=== PATIENT | male | born 1930 | race African-American/Black ===

== ENCOUNTER 2020-03-23 12:07 | Inpatient (IN) ==
[2020-03-23] MEDS ORDERED: SODIUM BICARBONATE 50 MEQ/50 ML VIAL IV ONE (16:13)
[2020-03-23] MEDS ORDERED: NOREPINEPHRINE 8 MG in SODIUM CHLORIDE 0.9% 242 ML IV PRN (16:16)
[2020-03-23] MEDS ORDERED: ONDANSETRON 4 MG/2 ML VIAL IV PRN (16:18)
[2020-03-23] MEDS ORDERED: ALBUTEROL 2.5 MG/3 ML NEB RESP TX PRN (16:18)
[2020-03-23] MEDS ORDERED: ACETAMINOPHEN 325 MG TABLET PO PRN (16:18)
[2020-03-23] MEDS ORDERED: MEROPENEM 500 MG in SODIUM CHLORIDE 0.9% 100 ML IV SCH (16:30)
[2020-03-23 17:20] LABS: Basophils % 0.2 % (0.0-0.8); Eosinophils % 0.1 % (0.00-10.9); Hematocrit 49.4 VOL% (42.0-52.0); Hemoglobin 14.9 GM/DL (14.0-18.0); Immature Granulocytes % 0.5 %; Immature Granulocytes Absolute 0.07 #; Lymphocytes # 0.6 10*3/uL (1.4-4.0); Lymphocytes % 4.6 % (21.2-54.2); Mean Corpuscular HGB Conc 30.2 GM/DL (32-36); Mean Corpuscular Volume 93.6 FL (87-102); Monocytes % 9.9 % (1.7-12.7); NRBC # 0.02 10*3/uL; Neutrophils % 84.7 % (38.7-73.9); Platelet Count 128 T/CUMM (130-400); Red Blood Count 5.28 MC/CUMM (3.8-5.5); Red Cell Distribution Width 16.5 % (9.3-17.3); White Blood Count 13.3 T/CUMM (4-12)
[2020-03-23 17:22] LABS: Albumin 2.1 G/DL (3.4-5.0); Bilirubin,Total 1.1 MG/DL (0.2-1.0); Total Protein 6.7 G/DL (6.4-8.3)
[2020-03-23] MEDS: FAMOTIDINE 20 MG/2 ML VIAL IV SCH (17:23)
[2020-03-23 17:31] LABS: Risk Ratio 3.78; VLDL CHOLESTEROL 24.8 MG/DL
[2020-03-23 17:42] LABS: Osmolality,Calculated 398.3 MOS/KG (273-304)
[2020-03-23] MEDS ORDERED: SODIUM POLYSTYRENE SULFATE 15 GM/60 ML BOTTLE PO ONE (17:48)
[2020-03-23 17:52] LABS: Hypochromasia 1+; Lymphocytes 7 % (20-55); Macrocytosis Slight; Segmented Neutrophils 86 % (50-85); Total Cells Counted 100
[2020-03-23 17:53] LABS: Platelet Estimate Adequate
[2020-03-23] MEDS ORDERED: SODIUM CHLORIDE 0.9% 1,000 ML IV SCH (18:00)
[2020-03-23 18:14] LABS: ABG Base Excess -5.3 MMOL/L (-2.5-2.5); ABG Oxygen Saturation 96.4 % (95-100); ABG PCO2 34.3 MM HG (35-48); ABG PH 7.358 (7.35-7.45); ABG PO2 95.5 MM HG (80-95); ABG TCO2 16.7 MMOL/L (23-27); Allen Test Positive; Pt O2 Delivery Device Simple Mask
[2020-03-23] MEDS: INSULIN LISPRO 100 UNIT/ML SUBCUT SCH (18:55)
[2020-03-23 20:35] LABS: Amorphous Crystals,Urine Occasional /HPF (Few); Bilirubin,Urine Negative (Negative); Blood, Urine Large mg/dL (Negative); Glucose,Urine (UA) Negative (Negative); Ketones,Urine Negative (Negative); Mucus,Urine Occasional /LPF (Occasional); Nitrite,Urine Negative (Negative); Protein,Urine 30 MG/DL; RBC,Urine 208 /HPF (0-4); Squamous Epithelial Cell,Urine Occasional /HPF (0-10); Urine Appearance CLOUDY (Clear); Urine Color Amber (Yellow); Urine Specific Gravity 1.017 (1.001-1.035); Urine Urobilinogen < 2.0 EU/DL (0.2-1.0); WBC,Urine 25 /HPF (0-6)
[2020-03-23] MEDS ORDERED: MEMANTINE 10 MG TABLET PO SCH (21:00)
[2020-03-23] MEDS ORDERED: ENOXAPARIN 30 MG/0.3 ML SYRINGE SUBCUT SCH (21:00)
[2020-03-23] MEDS: SODIUM CHLORIDE 0.45% 1,000 ML IV SCH (22:13)
[2020-03-24] MEDS: INSULIN LISPRO 100 UNIT/ML SUBCUT SCH ×3 (00:51→15:19)
[2020-03-24] MEDS: SODIUM CHLORIDE 0.45% 1,000 ML IV SCH ×2 (06:02→15:19)
[2020-03-24 06:32] LABS: Basophils % 0.1 % (0.0-0.8); Hematocrit 45.3 VOL% (42.0-52.0); Hemoglobin 13.8 GM/DL (14.0-18.0); Immature Granulocytes % 0.4 %; Immature Granulocytes Absolute 0.06 #; Lymphocytes # 0.9 10*3/uL (1.4-4.0); Lymphocytes % 5.9 % (21.2-54.2); Mean Corpuscular HGB Conc 30.5 GM/DL (32-36); Mean Platelet Volume 14.5 FL (9.6-12.0); Monocytes % 8.3 % (1.7-12.7); Neutrophils % 85.3 % (38.7-73.9); Platelet Count 107 T/CUMM (130-400); Red Blood Count 4.87 MC/CUMM (3.8-5.5); Red Cell Distribution Width 16.6 % (9.3-17.3); White Blood Count 14.4 T/CUMM (4-12)
[2020-03-24 07:10] LABS: Band Neutrophils 22 % (0-10); Lymphocytes 7 % (20-55); Segmented Neutrophils 69 % (50-85); Total Cells Counted 100
[2020-03-24 07:11] LABS: Anisocytosis 2+; Burr Cells 1+; Platelet Estimate Adequate
[2020-03-24 08:52] LABS: Calcium 8.6 MG/DL (8.5-10.1)
[2020-03-24] MEDS ORDERED: OLANZapine 2.5 MG TABLET PO SCH (09:00)
[2020-03-24] MEDS ORDERED: ASPIRIN EC 81 MG TABLET PO SCH (09:00)
[2020-03-24 09:05] LABS: Bilirubin,Total 0.5 MG/DL (0.2-1.0); Total Protein 6.3 G/DL (6.4-8.3)
[2020-03-24 09:12] LABS: Osmolality,Calculated 401.9 MOS/KG (273-304)
[2020-03-24] MEDS: FAMOTIDINE 20 MG/2 ML VIAL IV SCH (10:02)
[2020-03-24] MEDS: MORPHINE 4 MG/1 ML VIAL IV PRN (17:34)
[2020-03-24] MEDS ORDERED: MEROPENEM 500 MG in SODIUM CHLORIDE 0.9% 100 ML IV SCH (18:00)
[2020-03-24] MEDS: LORazepam 2 MG/1 ML VIAL IV PRN (19:34)
[2020-03-25] MEDS: fentaNYL 25 MCG/HR PATCH TRANSDERM SCH (12:29)
[2020-03-25] MEDS: LORazepam 2 MG/1 ML VIAL IV PRN (12:36)
[2020-03-25] MEDS: MORPHINE 4 MG/1 ML VIAL IV PRN (18:10)
[2020-03-26] MEDS: MORPHINE 4 MG/1 ML VIAL IV PRN (09:41)
[2020-03-27] MEDS: MORPHINE 4 MG/1 ML VIAL IV PRN ×2 (01:48→06:03)
[2020-03-28] MEDS: fentaNYL 25 MCG/HR PATCH TRANSDERM SCH (09:04)
[2020-03-28] MEDS: MENTHOL/ZINC OXIDE OINT 71 GM JAR TOP SCH (22:34)
[2020-03-29] MEDS: MENTHOL/ZINC OXIDE OINT 71 GM JAR TOP SCH ×2 (08:37→20:18)
[2020-03-29 15:15] VITALS: BP 99/39
== END 2020-03-30 00:33 | disposition expired | DRG 871 ==
LOC: SUATTDRO 15:16 → N.ICU 15:16 → N.5E 03-24 17:27
PROVIDERS: ADMIT Internal Medicine; ATTEND Family Medicine